=== PATIENT | male | born 2000 | race Two or more races ===

== ENCOUNTER 2022-02-25 13:31 | Emergency (ER) | payer MEDICAID ==
[~2022-02-25] VITALS: Ht 170.2 cm; Wt 93.0 kg
--- NOTE | 2022-02-25 14:05 | NUR ---
PT TRIAGED AND PLACED IN RM. 3.
--- NOTE | 2022-02-25 14:08 | NUR ---
URINE SAMPLE COLLECTED
--- NOTE | 2022-02-25 14:09 | NUR ---
HELADIO RANKIN AT BEDSIDE FOR MSE
[2022-02-25] MEDS ORDERED: CEFTRIAXONE 500 MG VIAL IM ONE (14:15)
[2022-02-25] MEDS ORDERED: LIDOCAINE HCL 1% 20 ML VIAL ONE (14:19)
[2022-02-25] MEDS ORDERED: CEFTRIAXONE 500 MG VIAL ONE (14:20)
[2022-02-25 14:37] LABS: *BILIRUBIN,URIN NEGATIVE (NEGATIVE); *CLARITY,URINE TURBID (CLEAR); *COLOR,URINE YELLOW (YELLOW); *KETONES,URINE NEGATIVE (NEGATIVE); *UROBILINOGEN,URINE 0.2 E.U./dl (NORMAL); LEUKOCYTE ESTERASE ,URINE 2+ (NEGATIVE); NITRITE, URINE NEGATIVE (NEGATIVE); PH,URINE 8.5 (5.0-8.0); UGLUCOSE NEGATIVE (NEGATIVE)
[2022-02-25 14:38] LABS: *BLOOD, URINE TRACE (NEGATIVE)
[2022-02-25] MEDS ORDERED: DOXY100T2 PO (15:20)
[2022-02-25 15:25] LABS: RBC,URINE 0-3 /HPF (0-3)
[2022-02-25 15:26] LABS: BACTERIA,URINE FEW /HPF (NONE SEEN)
[2022-02-25 15:27] LABS: SQUAMOUS EPITHELIAL CELL,UR FEW /HPF (NONE SEEN); WBC,URINE 80-100 /HPF (0-3)
[2022-02-25 15:42] VITALS: BP 115/78
--- NOTE | 2022-02-25 15:42 | NUR ---
Patient discharged to home in stable condition. Written and verbal after care instructions given. Patient verbalizes understanding of instructions. Stressed follow up or return to ER for worsening s/s.
[2022-02-27 05:06] LABS: *GC NAA Positive (Negative); *TRIC.VAG. NAA Negative (Negative)
== END 2022-02-25 15:40 | disposition home or self-care (01) ==
LOC: ER 13:31
DX: A64 Unspecified sexually transmitted disease (principal)
CPT/HCPCS: 99283; 81001; 87086; 96372; 87491; J0696; J3490; A4663